=== PATIENT | male | born 1950 | race Caucasian/White ===

== ENCOUNTER → 2023-07-25 15:20 | Outpatient (REF) | payer MEDICARE, SELFPAY | LOC: HWRAD 15:20 | PROVIDERS: ATTENDING PHYSICIAN Student in an Organized Health Care Education/Training Program | DX: R05.3 Chronic cough (principal); F17.200 Nicotine dependence, unspecified, uncomplicated; R63.4 Abnormal weight loss; Z85.51 Personal history of malignant neoplasm of bladder | CPT/HCPCS: 71250 ==